=== PATIENT | female | born 1990 ===

== ENCOUNTER 2022-03-06 15:44 | Outpatient (CLI) | payer OTHER | END 2022-03-06 17:20 | disposition home or self-care (01) | LOC: PRENATAL 15:44 | PROVIDERS: ATTEND Obstetrics & Gynecology Maternal & Fetal Medicine | DX: O35.0XX0 Maternal care for (suspected) central nervous system malformation in fetus, not applicable or unspecified (principal); O35.3XX0 Maternal care for (suspected) damage to fetus from viral disease in mother, not applicable or unspecified; Z3A.23 23 weeks gestation of pregnancy ==

== ENCOUNTER 2023-04-06 08:12 | Outpatient (CLI) | payer OTHER | END 2023-04-06 09:20 | disposition home or self-care (01) | LOC: PRENATAL 08:12 | PROVIDERS: ATTEND Obstetrics & Gynecology Maternal & Fetal Medicine | DX: O36.80X0 Pregnancy with inconclusive fetal viability, not applicable or unspecified (principal); O09.529 Supervision of elderly multigravida, unspecified trimester; Z36.82 Encounter for antenatal screening for nuchal translucency ==

== ENCOUNTER 2023-05-14 10:04 | Outpatient (CLI) | payer OTHER | END 2023-05-14 10:05 | disposition home or self-care (01) | LOC: PRENATAL 10:04 | PROVIDERS: ATTEND Obstetrics & Gynecology Maternal & Fetal Medicine | DX: O35.3XX0 Maternal care for (suspected) damage to fetus from viral disease in mother, not applicable or unspecified (principal); O44.00 Complete placenta previa NOS or without hemorrhage, unspecified trimester; Z3A.19 19 weeks gestation of pregnancy ==

== ENCOUNTER → 2023-07-16 09:02 | Outpatient (CLI) | payer OTHER | END | disposition home or self-care (01) | LOC: PRENATAL 09:02 | PROVIDERS: ATTEND Obstetrics & Gynecology Maternal & Fetal Medicine | DX: O26.849 Uterine size-date discrepancy, unspecified trimester (principal); O44.00 Complete placenta previa NOS or without hemorrhage, unspecified trimester ==

== ENCOUNTER 2023-08-27 09:17 | Outpatient (CLI) | payer OTHER | END 2023-08-27 09:18 | disposition home or self-care (01) | LOC: PRENATAL 09:17 | PROVIDERS: ATTEND Obstetrics & Gynecology Maternal & Fetal Medicine | DX: O26.849 Uterine size-date discrepancy, unspecified trimester (principal); O36.8199 Decreased fetal movements, unspecified trimester, other fetus; Z3A.34 34 weeks gestation of pregnancy ==